=== PATIENT | female | born 1940 | race Caucasian/White ===

== ENCOUNTER 2016-06-25 07:59 | Day surgery (SDC) | payer MEDICARE, OTHER ==
--- NOTE | ~2016-06-25 | EGD ---
EGD REPORT [facility] [address] [place] [address] NAME: LUIS ARGUELLES : [birth year] STATUS : REG [facility]#: [id number] AGE: 75 ADM/REG DATE : 06/25/16 MR#: [id number] REPORT SERV DATE: 06/25/16 DICTATED BY: RAFAT SAVAGE DATE: 06/25/16 REPORT STATUS : Draft TRANSCRIBED BY: [employer] DATE: 06/25/16 [facility] Center Patient Name: Luis Arguelles Date of : 1940 Attending MD: RAFAT SAVAGE MD Procedure Date No Time: 06/25/2016 Procedure: Colonoscopy Indications: Colon cancer screening in patient at increased risk: Family history of colon polyps Referring MD: KIM DUKES MD Medicines: as per anesthesia Complications: No immediate complications. Procedure: Pre-Anesthesia Assessment: - ASA Grade Assessment: III - A patient with severe systemic disease. After I obtained informed consent, the scope was passed under direct vision. Throughout the procedure, the patient's blood pressure, pulse, and oxygen saturations were monitored continuously. The PCF [id number] was introduced through the anus and advanced to the cecum, identified by appendiceal orifice and ileocecal valve. The colonoscopy was performed without difficulty. The patient tolerated the procedure. The quality of the bowel preparation was fair. Findings: The perianal and digital rectal examinations were normal. A few small and large-mouthed diverticula were found in the transverse colon. Internal hemorrhoids were found during endoscopy and were mild. Impression: - Diverticulosis in the transverse colon. - Internal hemorrhoids. Recommendation: - Repeat colonoscopy in 5 years for surveillance. Procedure Code(s): --- Professional --- 45900, Colonoscopy, flexible, proximal to splenic flexure; diagnostic, with or without collection of specimen(s) by brushing or washing, with or without colon decompression (separate procedure) Diagnosis Code(s): --- Professional --- K64.8, Other hemorrhoids K57.30, Diverticulosis of large intestine without EGD REPORT [facility] [address] [place]. [address] NAME: LUIS ARGUELLES : [birth year] STATUS : REG [facility] PAT#: [id number] AGE: 75 ADM/REG DATE : 06/25/16 MR#: [id number] REPORT SERV DATE: 06/25/16 DICTATED BY: RAFAT SAVAGE. DATE: 06/25/16 REPORT STATUS : Draft TRANSCRIBED BY: [employer] DATE: 06/25/16 perforation or abscess without bleeding Z12.11, Encounter for screening for malignant neoplasm of colon Z83.71, Family history of colonic polyps CPT copyright 2013 [employer]. All rights reserved. The codes documented in this report are preliminary and upon over the horizon targeting supervisor review may be revised to meet current compliance requirements. RAFAT SAVAGE MD 06/25/2016 9:16 AM This report has been signed electronically. Number of Addenda: 0 Note Initiated On: 06/25/2016 8:41 AM Scope Withdrawal Time 0 hours 9 minutes 54 seconds [address] [place] [address]
--- NOTE | ~2016-06-25 | EGD ---
EGD REPORT [facility] [address] [place] [address] NAME: LUIS ARGUELLES : [birth year] STATUS : REG [facility]#: [id number] AGE: 75 ADM/REG DATE : 06/25/16 MR#: [id number] REPORT SERV DATE: 06/25/16 DICTATED BY: RAFAT SAVAGE DATE: 06/25/16 REPORT STATUS : Draft TRANSCRIBED BY: [employer] DATE: 06/25/16 Endoscopy Center Patient Name: Luis Arguelles Date of : 1940 Attending MD: RAFAT SAVAGE MD Procedure Date No Time: 06/25/2016 Procedure: Upper GI endoscopy Indications: Epigastric abdominal pain, Gastroparesis, Nausea Referring MD: KIM DUKES MD Medicines: as per anesthesia Complications: No immediate complications. Procedure: Pre-Anesthesia Assessment: - ASA Grade Assessment: III - A patient with severe systemic disease. After obtaining informed consent, the endoscope was passed under direct vision. Throughout the procedure, the patient's blood pressure, pulse, and oxygen saturations were monitored continuously. The GIF H190 [id number] was introduced through the mouth, and advanced to the third part of duodenum. The upper GI endoscopy was accomplished without difficulty. The patient tolerated the procedure. Findings: The examined esophagus was normal. Localized mild inflammation characterized by erythema was found in the gastric antrum. Biopsies were taken with a cold forceps for histology. The cardia and gastric fundus were normal on retroflexion. The examined duodenum was normal. Impression: - Normal esophagus. - Gastritis. Biopsied. - Normal examined duodenum. Recommendation: - Await pathology results. Procedure Code(s): --- Professional --- 57481, Esophagogastroduodenoscopy, flexible, transoral; with biopsy, single or multiple Diagnosis Code(s): --- Professional --- K29.70, Gastritis, unspecified, without bleeding R10.13, Epigastric pain K31.84, Gastroparesis R11.0, Nausea EGD REPORT [facility] [address] [place] [address] [place] [address] NAME: LUIS ARGUELLES : [birth year] STATUS : REG [facility]#: [id number] AGE: 75 ADM/REG DATE : 06/25/16 MR#: [id number] REPORT SERV DATE: 06/25/16 DICTATED BY: RAFAT SAVAGE. DATE: 06/25/16 REPORT STATUS : Draft TRANSCRIBED BY: [employer] DATE: 06/25/16 CPT copyright 2013 [employer]. All rights reserved. The codes documented in this report are preliminary and upon green chain off bearer review may be revised to meet current compliance requirements. RAFAT SAVAGE MD 06/25/2016 8:56 AM This report has been signed electronically. Number of Addenda: 0 Note Initiated On: 06/25/2016 8:43 AM Scope Withdrawal Time 0 hours 0 minutes 0 seconds [address] [place] [address]
[~2016-06-25 07:59] MED LIST: ACIDOPHILU1 PO; ASAB PO; CLIN150 PO; CO Q-10100 MG PO; COZ50 PO; COZAAR100 MG PO; CYMBALTA30 PO; FISH OIL300 MG PO; FLEXERIL5 MG PO; HYDROCHLOROT12.5 MG PO; HYDROCHLOROT25 MG PO; HYDROCODONE APAP PO; LEXAPRO20 PO; MACROBID PO; METHOC500B PO; MIRALAX POWDER1 PKT PO; MULTIPLE VIT PO; NEUR300 PO; NIASPAN500 PO; NORCO1 TA2 PO; NORCO1 TAB PO; NORV5 PO; OMNIPRED1 % OPH; PILOCARPINE5 MG PO; PLAQ200B PO; PRILO PO; PROBIOTIC PO; REG PO; SINGULAIR1 PO; VITAMIN B-121000 MC1 SL; ZIAC5 PO; ZYRTEC ALLGY10 MG PO
== END 2016-06-25 23:59 | disposition home or self-care (01) ==
LOC: DMU 07:59
PROVIDERS: Internal Medicine Gastroenterology
PROC: 0DB68ZX Excision of Stomach, Via Natural or Artificial Opening Endoscopic, Diagnostic (ICD-10-PCS; principal; 2016-06-25 09:00)
DX: Z12.11 Encounter for screening for malignant neoplasm of colon (principal); K29.50 Unspecified chronic gastritis without bleeding; R10.13 Epigastric pain; K31.84 Gastroparesis; R11.0 Nausea; G47.33 Obstructive sleep apnea (adult) (pediatric); M10.9 Gout, unspecified; M19.90 Unspecified osteoarthritis, unspecified site; M35.00 Sjogren syndrome, unspecified; E11.9 Type 2 diabetes mellitus without complications; D86.9 Sarcoidosis, unspecified; M79.7 Fibromyalgia; I20.9 Angina pectoris, unspecified; I49.9 Cardiac arrhythmia, unspecified; K21.9 Gastro-esophageal reflux disease without esophagitis; H91.90 Unspecified hearing loss, unspecified ear; K64.8 Other hemorrhoids; K57.30 Diverticulosis of large intestine without perforation or abscess without bleeding; G43.909 Migraine, unspecified, not intractable, without status migrainosus; Z88.5 Allergy status to narcotic agent; Z90.49 Acquired absence of other specified parts of digestive tract; Z79.899 Other long term (current) drug therapy; Z91.041 Radiographic dye allergy status; Z90.710 Acquired absence of both cervix and uterus; Z98.42 Cataract extraction status, left eye; Z98.51 Tubal ligation status; Z98.41 Cataract extraction status, right eye; Z98.890 Other specified postprocedural states; Z96.1 Presence of intraocular lens; Z98.1 Arthrodesis status; Z87.891 Personal history of nicotine dependence; Z79.891 Long term (current) use of opiate analgesic; Z83.71 Family history of colonic polyps
CPT/HCPCS: 82962; 88305; J2370